=== PATIENT | male | born 1995 ===

== ENCOUNTER 2021-01-12 14:20 | Emergency (ER) | payer OTHER, SELFPAY ==
[2021-01-12 14:33] VITALS: BP 136/86; PULSE 90; RESP 18; TEMP 37; O2SAT 98; BMI 27.4
--- NOTE | 2021-01-12 14:40 | ED_ITS ---
HPI - Back Pain/Injury <Long Hawk PA-C - Last Filed: 01/12/21 14:56> General Chief Complaint: Back Pain/Injury Stated Complaint: Back Pain, Middle Back Time Seen by Provider: 01/12/21 14:39 Source: patient Limitations: no limitations History of Present Illness HPI Narrative: Joel presents today with chief complaint of mid back pain that occurred earlier this morning. He reports that he was getting out of his car and was doing a twisting motion when he felt a sudden twinge in his mid back. He has had pain in that area since this occurred. Pain is made worse with bending forward or rotational movements of his head. He denies any significant chest pain, shortness of breath, abdominal pain, headache, numbness or tingling in his legs, changes in bowel or bladder habits, or any other acute concerns or complaints at this time. He denies any previous injuries to his back. He is on his way down to [place] for a 3 week vacation and will be driving. Related Data Previous Rx's Medication Instructions Recorded naproxen 500 mg tablet 500 mg PO BID PRN #20 tab 01/12/21 Allergies Allergy/AdvReac Type Severity Reaction Status Date / Time No Known Drug Allergies Allergy Verified 01/12/21 14:33 Review of Systems <Long Hawk PA-C - Last Filed: 01/12/21 14:56> Review of Systems Narrative: As per HPI Patient History <MATHEUS Moura Last Filed: 01/12/21 14:56> Social History Smoking Status: Never smoker Smoking Status: Never smoker alcohol intake frequency: 0-2 drinks per day Alcohol type: beer Substance Use Type: does not use Exam <MATHEUS Moura Last Filed: 01/12/21 14:56> Narrative Exam Narrative: Exam Narrative: Const General: cooperative, healthy appearing, comfortable, no acute distress, well developed and well groomed Nutritional Appearance: average body habitus Orientation: alert and oriented x3 HENMT Head: normal to inspection and atraumatic Ears: hearing grossly normal bilaterally Nose: external nose normal and nares normal Face and sinus: normal facial exam Neck Neck: normal visual inspection and supple Resp Effort & Inspection: normal respiratory effort, able to speak in complete sentences, no audible wheezes, not labored, no nasal flaring and no respiratory distress Musculoskeletal No midline spinal tenderness noted. Mild bilateral paraspinal muscle tenderness in the lower thoracic region. No overlying skin abnormalities. Neuro General: alert, oriented x3, gait normal, tone normal and moves all extremities Cognition: normal cognition Speech: speech normal Gait: normal gait Psych Appearance: grossly normal and well kempt Mental Status: mental status grossly normal Speech and Movement: speech and movement normal Mood: congruent mood Affect: normal affect Initial Vital Signs Initial Vital Signs: Vital Signs Temperature 98.6 F 01/12/21 14:33 Pulse Rate 90 01/12/21 14:33 Respiratory Rate 18 01/12/21 14:33 Blood Pressure 136/86 01/12/21 14:33 Pulse Oximetry 98 01/12/21 14:33 <Freedom Fowler MD - Last Filed: 01/12/21 16:08> Initial Vital Signs Initial Vital Signs: Vital Signs Temperature 98.6 F 01/12/21 14:33 Pulse Rate 90 01/12/21 14:33 Respiratory Rate 18 01/12/21 14:33 Blood Pressure 136/86 01/12/21 14:33 Pulse Oximetry 98 01/12/21 14:33 Course <Long Hawk PA-C - Last Filed: 01/12/21 14:56> Orders Ordered: Discontinued Medications Ketorolac Tromethamine (Ketorolac 30 Mg/Ml Vial) 30 mg IM NOW ONE Stop: 01/12/21 14:49 Last Admin: 01/12/21 14:52 Dose: 30 mg Documented by: OLINDA Vital Signs Vital signs: Vital Signs - 8 hr 01/12/21 14:33 Temperature 98.6 F Pulse Rate 90 Respiratory Rate 18 Blood Pressure 136/86 Pulse Oximetry 98 <Freedom Fowler MD - Last Filed: 01/12/21 16:08> Orders Ordered: Discontinued Medications Ketorolac Tromethamine (Ketorolac 30 Mg/Ml Vial) 30 mg IM NOW ONE Stop: 01/12/21 14:49 Last Admin: 01/12/21 14:52 Dose: 30 mg Documented by: OLINDA Vital Signs Vital signs: Vital Signs - 8 hr 01/12/21 14:33 Temperature 98.6 F Pulse Rate 90 Respiratory Rate 18 Blood Pressure 136/86 Pulse Oximetry 98 MDM - Back Pain/Injury <Long Hawk PA-C - Last Filed: 01/12/21 14:56> MDM Narrative Medical decision making narrative: Differential diagnosis include spondylolisthesis, compression fracture, infection. Patient's physical examination is reassuring. He does not have any significant midline spinal tenderness and there is no significant signs of infection at this time. He has bilateral paraspinal muscle tenderness which correlates well with his symptoms. I suspect that this is a muscular strain. Recommend NSAIDs, stretching, warm compresses as primary care. Return precautions were discussed with patient. Patient verbalizes understanding and agrees to plan and has no further concerns at this time. Thank you A [id number] system was used with the dictation of this note. Please disregard any spelling or grammatical errors. Discharge Plan Departure Patient Disposition: Home Clinical Impression: Thoracic back pain Qualifiers: Chronicity: acute Back pain laterality: bilateral Qualified Code(s): M54.6 - Pain in thoracic spine Instructions: DI for Muscle Strain, DI for Back Spasm Activity Restrictions/Additional Instructions: It was very nice to meet you this afternoon. I suspect that you strained your muscles in your mid back. Please apply warm compresses, perform light stretching, and do light exercise and range of motion activity as tolerated. Recommend taking acetaminophen as needed today and then you can take NSAIDs or acetaminophen tomorrow for your discomfort. Return precautions include fever, acutely worsening pain, numbness or tingling in her legs, changes in bowel or bladder habits or any other new or worsening complaints. Thank you Long Hawk PA-C Prescriptions: New naproxen 500 mg tablet 500 mg PO BID PRN (Reason: pain) Qty: 20 RF: 0
[2021-01-12] MEDS: KETOROLAC 30 MG/ML VIAL IM (14:52)
== END 2021-01-12 15:25 | disposition home or self-care (01) ==
PROVIDERS: Emergency Provider Physician Assistant
DX: M54.6 Pain in thoracic spine (principal)
CPT/HCPCS: 96372; 99283; J1885